=== PATIENT | female | born 1990 | race Caucasian/White ===

== ENCOUNTER → 2018-01-02 01:46 | Observation (INO) ==
[2018-01-01 23:09] LABS: Bilirubin,Urine Negative (Negative); Blood,Urine Negative (Negative); Clarity,Urine Cloudy (Clear); Color,Urine Yellow (Yellow); Glucose,Urine (UA) Normal (Normal); Ketones,Urine Negative (Negative); Leukocyte Esterase,Urine Small (Negative); Nitrite,Urine Negative (Negative); PH,Urine 6.5 pH Units (5.0-8.0); Protein,Urine Negative (Neg-Trace); Specific Gravity,Urine 1.011 (1.010-1.025); Urobilinogen,Urine Normal (Normal)
[2018-01-01 23:14] LABS: Bacteria,Urine Few per hpf (None-Few); Hyaline Casts,Urine None Seen per lpf (None-Few); RBC,Urine 0-3 per hpf (0-3); Squamous Epithelial Cell,Urine Many per lpf (None-Few)
[2018-01-01 23:30] LABS: Amphetamine Screen,Urine Negative ng/mL (Cutoff=1000); Barbiturate Screen,Urine Negative ng/mL (Cutoff=200); Benzodiazepines Screen,Urine Negative ng/mL (Cutoff=200); Cannabinoid Screen,Urine Positive ng/mL (Cutoff = 50); Cocaine Screen,Urine Negative ng/mL (Cutoff= 300); Opiate Screen,Urine Negative ng/mL (Cutoff=300); Phencyclidine Screen,Urine Negative ng/mL (Cutoff=25)
--- NOTE | 2018-01-02 00:03 | OB/GYN Progress Note ---
Date of Encounter: 01/01/18 Time of Encounter: 23:58 - Assessment and Plan (1) 33 weeks gestation of Current Visit: Yes Status: Acute Continue routine care labor precautions given Follow-up with Dr. Ferrara as scheduled Okay to discharge home (2) Abdominal pain due to injury Current Visit: Yes Status: Acute 25mg vistaril given po for slight abdominal cramping (3) Fall Current Visit: Yes Status: Acute Qualifiers: Encounter type: initial encounter Qualified Code(s): W19.XXXA - Unspecified fall, initial encounter Subjective - Subjective Principal diagnosis: abdominal pain s/p fall Interval history: Ms. Laws is a 27-year-old who presents status post falling earlier tonight around 8:30 PM. She reports that hit her head and the left side of her abdomen. She was previously cleared of all head injuries in the emergency room and transported up to labor and delivery. She reports good movement and denies contractions, leakage of fluid, vaginal bleeding. Antepartum ROS: new complaints, movement normal, no loss of fluid, no vaginal bleeding, no contractions Objective - Exam FHR: category 1 FHR comments: Baseline 120 Moderate variability Accelerations present 15x15 No decelerations FHR Category I Irritability on toco Auscultation: bilateral: normal Abdomen: Present: normal appearance, soft, gravid Uterus: Present: normal, firm Cervical dilation: 1-2(per RN) Cervix effacement: 80 station: -1 - Labs Labs: Abnormal lab results Urine Clarity Cloudy (Clear) A 01/01/18 22:54 Ur Leukocyte Esterase Small (Negative) H 01/01/18 22:54 U Marijuana (THC) Screen Positive ng/mL (Cutoff = 50) H 01/01/18 22:54
[~2018-01-02 01:46] MED LIST: hydrOXYzine pamoate 25 MG CAPSULE PO ONE
== END | disposition home or self-care (01) ==
LOC: 1NENULAB
PROVIDERS: ADMIT Obstetrics & Gynecology; ATTEND Obstetrics & Gynecology

== ENCOUNTER 2018-02-11 05:38 | Inpatient (IN) ==
--- NOTE | 2018-02-11 04:23 | OB/GYN History & Physical ---
Date of Encounter: 02/11/18 Time of Encounter: 04:16 Assessment and Plan (1) 39 weeks gestation of Current visit: Yes Status: Acute (2) Uterine contractions Current visit: Yes Status: Acute Admit to labor and delivery Expectant management at this time Nubain and epidural as desired Anticipate History of Present Illness Chief complaint: Uterine contractions HPI: Ms. Batista is a 28 year old female at 39+1 weeks gestation. Presents to triage with complaints of uterine contraction. Gestation states she started having uterine contractions last evening and have become stronger and more consistent occurring about every 2 minutes on admission, now occurring approximately every 5 minutes. Reports good movement, denies vaginal bleeding or leaking of fluid. care with Dr. Ferrara. care complicated with history of child with CHD, patient no showed for echoes had [facility], no cardiac anomalies noted on MFM ultrasound. Patient received steroids in October for short cervix, and have vaginal progesterone. Labs: A+, GBS negative, rubella IgM positive however IgG not done rubella status unknown, all other serologies negative Past Med Surg Social Fam HX - Past Medical History Medical history: no medical history Psychiatric history: anxiety - Past Surgical History Surgical History: non-contributory Additional surgical history: LEEP PROCEDURE - Social History Smoking Status: Former smoker Smokeless Tobacco Status: No Alcohol use: none Drug use: none - Family History Father Adopted: [place]: Yoseph Batista Age: 48 Family Member Ethnicity: Non- Living Status: Still Living Hx Family Cardiac Disorders: No Hx Family Respiratory Disorders: No Hx Family Cancer: No Hx Family GI Disorders: No Hx Family Genitourinary Disorders: No Hx Family Endocrine Disorder: Yes Hx Family Musculoskeletal Disorders: No Hx Family Neuromuscular Disorders: No Hx Family Reproductive Disorders: No Hx Family Psychosocial Disorders: No Obstetrical History - Pregnancies : 6 Para: 3 Term: 3 : 1 Ab's: 1 Livin Medications and Allergies Ferrous Sulfate [Iron] 1 tab PO DAILY 01/01/18 [History] Vit/Iron Fumarate/FA [ Tablet] 1 tab PO DAILY 01/01/18 [History ] 3 Allergy/AdvReac Type Severity Reaction Status Date / Time Penicillins [PCN] Allergy Hives Verified 01/01/18 22:53 propoxyphene Allergy Hives Verified 01/01/18 22:53 [From Darvocet-N] sulfamethoxazole AdvReac Nausea Verified 01/01/18 22:53 [From Bactrim] tramadol [From Ultram] AdvReac Nausea Verified 01/01/18 22:53 trimethoprim [From Bactrim] AdvReac Nausea Verified 01/01/18 22:53 Exam - Constitutional Constitutional: well developed, well nourished, no acute distress, average body habitus - Lungs Respiratory exam: stridor - Cardiovascular Cardiovascular exam: RRR - Abdomen Abdomen: Present: gravid, non tender - Extremities Extremities exam: normal capillary refill, normal inspection - Vagina Vagina: Present: normal moisture - Cervix Dilation: 4 Effacement: 80 Station: -2 Results Result Diagrams: 02/11/18 05:46 All other labs normal. - VTE Reasons for not Prescribing Prophylaxis: Treatment not Indicated - Low risk for VTE
[~2018-02-11 05:38] MED LIST changes: +*HR* Nalbuphine 10 MG/ML AMPUL IVP PRN; +Famotidine 20 MG/2 ML VIAL IVP PRN; +Lidocaine 1% 20 ML MDV INFILT PRN; +Metoclopramide 10 MG/2 ML VIAL IVP PRN; +Naloxone 0.4 MG/ML INJ IVP PRN; +Ondansetron 4 MG/2 ML VIAL IVP PRN; +Ringers Solution, Lactated 1,000 ML IVC SCH; -hydrOXYzine pamoate 25 MG CAPSULE PO ONE
[2018-02-11 06:09] LABS: Basophils % 0.2 %; Eosinophils # 0.1 K/mcL (0.0-0.6); Eosinophils % 0.4 %; Hematocrit 32.4 % (35.3-44.9); Hemoglobin 10.9 g/dL (11.5-15.4); Immature Granulocytes % 0.4 % (0-4); Lymphocytes # 3.2 K/mcL (0.6-4.6); Lymphocytes % 22.8 %; Mean Corpuscular HGB Conc 33.6 g/dL (31.6-35.5); Mean Corpuscular Hemoglobin 30.9 pg (28.0-33.3); Mean Corpuscular Volume 91.8 fL (83.0-100.0); Mean Platelet Volume 10.3 fL (9.4-12.4); Monocytes # 1.1 K/mcL (0.0-1.3); Monocytes % 7.7 %; Neutrophils # 9.5 K/mcL (1.6-8.9); Platelet Count 146 K/mcL (140-400); Red Blood Count 3.53 M/mcL (3.82-4.97); Red Cell Distribution Width 13.7 % (11.5-14.5); Segmented Neutrophils % 68.5 %
[2018-02-11 06:27] LABS: Amphetamine Screen,Urine Negative ng/mL (Cutoff=1000); Barbiturate Screen,Urine Negative ng/mL (Cutoff=200); Benzodiazepines Screen,Urine Negative ng/mL (Cutoff=200); Cannabinoid Screen,Urine Negative ng/mL (Cutoff = 50); Cocaine Screen,Urine Negative ng/mL (Cutoff= 300); Opiate Screen,Urine Negative ng/mL (Cutoff=300); Phencyclidine Screen,Urine Negative ng/mL (Cutoff=25)
--- NOTE | 2018-02-11 06:42 | Anesthesia Evaluation PreOp ---
Date of Encounter: 02/11/18 Time of Encounter: 06:24 - Past History Planned Operation: vaginal del, 39wks Cardiac History: Denies any Significant Hx Pulmonary History: Denies Any Significant HX CONCRETE MIXER OPERATOR HELPER History: Denies Any Significant HX Other Medical History: Other (anxiety, chronic back pain reports no radiculopathy states its from last epidural, but does not bother me.) Anesthesia History: No Prior Anesthetic Complications, Past Anesthesia ( previous wet tap with last epidural.) : Yes Alcohol Use: none Drug use: none Medications and Allergies Ferrous Sulfate [Iron] 1 tab PO DAILY 01/01/18 [History] Vit/Iron Fumarate/FA [ Tablet] 1 tab PO DAILY 01/01/18 [History ] 3 Allergy/AdvReac Type Severity Reaction Status Date / Time Penicillins [PCN] Allergy Hives Verified 01/01/18 22:53 propoxyphene Allergy Hives Verified 01/01/18 22:53 [From Darvocet-N] sulfamethoxazole AdvReac Nausea Verified 01/01/18 22:53 [From Bactrim] tramadol [From Ultram] AdvReac Nausea Verified 01/01/18 22:53 trimethoprim [From Bactrim] AdvReac Nausea Verified 01/01/18 22:53 Anesthesia Results - Labs 02/11/18 05:46 Anesthesia Exam - HEENT Pupil (Motor): Pupils equal Mallampati: II Teeth: Poor dentition (states all stable ?, very poor condition!) Oral Opening: Greater than 3 - CONCRETE MIXER OPERATOR HELPER LOC: Oriented CONCRETE MIXER OPERATOR HELPER Motor: Normal RUE, Normal LUE, Normal RLE, Normal LLE, Normal Face CONCRETE MIXER OPERATOR HELPER Sensory: Normal: RUE, LUE, RLE, LLE, Face - Cardiac Rhythm: Regular Murmur: None - Pulmonary Breath Sounds: bilateral Clear Respiratory Effort: Symmetrical Anesthesia Assess/Plan ASA Score: 2 Modified [place] Scale for Level of Consciousness: Cooperative, oriented, and tranquil Anesthetic Plan: General, Regional Monitoring Plan: Standard Monitors Recovery Plan: PACU
[2018-02-11] MEDS ORDERED: Lidocaine -MPF 2% 5 ML VIAL ONE (07:09)
[2018-02-11] MEDS ORDERED: Epidural Premix (fent/bupiv) 110 ML EP ONE (07:10)
[2018-02-11] MEDS ORDERED: Epidural Premix (fent/bupiv) 110 ML EP SCH (07:15)
--- NOTE | 2018-02-11 08:22 | Anesthesia Procedures ---
Date of Encounter: 02/11/18 Time of Encounter: 08:21 Procedures: Anesthesia - Epidural/Spinal Patient ID/Chart reviewed: Yes Patient examined: Yes OB Eval: Gestational age: 39 OB Eval: : 6 OB Eval: Hx Para: 3 OB Eval: Dilated at (cm): 5 OB Eval: Contractions: Non-stressed pattern Consent Obtained: Yes Supplemental Oxygen: None/Room Air Site Prep: Aseptic Technique, Sterile prep and drape, Povidone-Iodine 1% Patient position: upright Local Anesthetic: Lidocaine 1% Amount of Local Anesthetic used: 3 Touhy Needle Gauge: 18 Touhy Needle Depth (cm): 8 Catheter Depth at Skin (cm): 18 Test Dose (1.5% Lido + Epi): Volume given (mls): 5 Test Dose Result: Negative Loading Dose: Other: 10mls pharm bag premix solution Loading Dose Administered: Thru Catheter Infusion Med: 0.125% Bupivacaine w/ 2 mcg/ml Fentanyl Infusion Rate (mls/hr): 15 (4mlq15 min pcea) Catheter Secured in Place: Tegaderm, Tape Interspace Used: L4-L5 Loss of Resistance (IVET): Yes Blood: No CSF: No Paresthesia: No Procedure: pt tolerated procedure well. no complications. vss. fhr stable.
--- NOTE | 2018-02-11 09:05 | OB Labor Progress Note ---
Date of Encounter: 02/11/18 Time of Encounter: 09:03 Labor Progress Note - Subjective Subjective: patient is doing well, no longer feeling her contractions with epidural - Cervix Cervix: 5/90/-2 AROM clear fluid - Heart Tones Heart Tones: FHT's 140's reactive - Ephraim Ephraim: contractions are irregular 3-7min - Plan Plan: if patient does not make any cervical change in the next couple hours will discuss augmentation
[2018-02-11] MEDS ORDERED: Oxytocin 20 units/ LR 1000 mL 20 UNIT/1,000 ML BAG IVC ONE (09:58)
--- NOTE | 2018-02-11 12:21 | OB/GYN Procedure Note ---
Delivery - Delivery Date: 02/11/18 Provider: Yunier Rodriguez Intrapartum events: none Delivery augmentation: rupture of membranes Delivery monitor: external FHT, external uterine Anesthesia: epidural Quantitated Blood Loss: 50 - Infant (s) A Infant Delivery Date: 02/11/18 Delivery Time: 12:06 Presentation: vertex Position: RADHA Route of delivery: Gender: Female Viability: Viable Pounds: 6 Ounces: 15 Weight Gram: 3.135 kg at 1 minute: 8 at 5 mins: 9 Shoulder Dystocia: not encountered Placenta: spontaneous Cord: 3 umbilical vessels - Repair Episiotomy: none Laceration Description: None - Complications Delivery complications: none Delivery comments: The patient is a 28-year-old 6 para 30-3 at 39 and one sevenths weeks who had presented to labor and delivery in active labor. Patient was 3 cm on admission she was observed had changed to 4 cm and 5 cm contractions became uncomfortable and patient was admitted and epidural was placed when the patient was 5 cm she was artificially ruptured for clear fluid noted she did not require any additional augmentation patient progressed to completion first approximately 3 times delivering a viable female infant in left occiput anterior presentation at 1206. There was no nuchal cord, no meconium, and the infant was bulb suctioned on the abdomen. Apgars were 8 at 1 minute, 9 at 5, infant weight was 6 lbs. 15 oz. Placenta was then delivered spontaneously with a three-vessel cord, manager market development at the terry Rodriguez epidural, estimated blood loss 50 mL. Perineum cervix and vagina was visualized intact. Patient tolerated the delivery well she will be observed 2 hours before being taken to floor. - Disposition Mom disposition: stable in LDR disposition: stable in LDR
[2018-02-11] MEDS ORDERED: Acetaminophen 325 MG TABLET PO PRN (15:19)
[2018-02-11] MEDS ORDERED: Measles/Mumps/Rubella Vacc 0.5 ML VIAL SQ PRN (15:19)
[2018-02-11] MEDS ORDERED: Oxytocin 20 units/ LR 1000 mL 20 UNIT/1,000 ML BAG IVC SCH (15:19)
[2018-02-11] MEDS: Ibuprofen 600 MG TABLET PO PRN (15:46)
[2018-02-12 06:45] LABS: Basophils % 0.2 %; Eosinophils # 0.1 K/mcL (0.0-0.6); Eosinophils % 0.5 %; Hematocrit 30.8 % (35.3-44.9); Hemoglobin 10.3 g/dL (11.5-15.4); Immature Granulocytes % 0.4 % (0-4); Lymphocytes # 2.9 K/mcL (0.6-4.6); Mean Corpuscular HGB Conc 33.4 g/dL (31.6-35.5); Mean Corpuscular Hemoglobin 31.4 pg (28.0-33.3); Mean Corpuscular Volume 93.9 fL (83.0-100.0); Mean Platelet Volume 10.8 fL (9.4-12.4); Monocytes # 0.9 K/mcL (0.0-1.3); Monocytes % 7.7 %; Neutrophils # 7.6 K/mcL (1.6-8.9); Platelet Count 116 K/mcL (140-400); Red Blood Count 3.28 M/mcL (3.82-4.97); Red Cell Distribution Width 13.4 % (11.5-14.5); Segmented Neutrophils % 66.2 %
[2018-02-12 08:14] VITALS: BP 105/66
[2018-02-12] MEDS: Ibuprofen 600 MG TABLET PO PRN (08:52)
[2018-02-12] MEDS ORDERED: Prenatal Vit/FA 1 EACH TABLET PO SCH (09:00)
[2018-02-12] MEDS ORDERED: NON-FORMULARY MEDICATION 1 EACH EACH (Prenatal Vit/Iron Fumarate/Fa [Prenatal Tablet] 1 TA PO SCH (09:00)
[2018-02-12] MEDS ORDERED: Lanolin 7 G OINT...G. TP PRN (10:41)
--- NOTE | 2018-02-12 10:49 | Discharge Summary ---
Date of Encounter: 02/12/18 Time of Encounter: 10:46 - Discharge Diagnosis (1) Vaginal delivery Priority: Primary Status: Acute Comments: Pain well controlled with po pain meds Tolerating regular diet Ambulating independently Voiding independently Passing flatus, but no BM yet Lochia light Discharge home today (2) Breast feeding status of mother Priority: Secondary Status: Acute Comments: Community resources provided (3) anemia Priority: Secondary Status: Acute Comments: Continue iron daily - Discharge Medications Prescriptions: RX: Ibuprofen [Motrin] 600 mg PO Q6HR PRN #30 tablet PRN Reason: Cramping RX: Docusate [Colace] 100 mg PO BID #30 capsule RX: Ferrous Sulfate 325 mg PO DAILY #30 tablet Home Medications: RX: Vit/Iron Fumarate/FA [ Tablet] 1 tab PO DAILY 01/01/18 [ History] RX: Acetaminophen [Tylenol] 650 mg PO Q6HR PRN tablet 02/12/18 [Rx] RX: Docusate [Colace] 100 mg PO BID #30 capsule 02/12/18 [Rx] RX: Ferrous Sulfate 325 mg PO DAILY #30 tablet 02/12/18 [Rx] RX: Ibuprofen [Motrin] 600 mg PO Q6HR PRN #30 tablet 02/12/18 [Rx] RX: Lanolin [Lansinoh] 1 appl TP TID PRN oint...g. 02/12/18 [Rx] Allergies/Adverse Reactions: 3 Allergy/AdvReac Type Severity Reaction Status Date / Time Penicillins [PCN] Allergy Hives Verified 01/01/18 22:53 propoxyphene Allergy Hives Verified 01/01/18 22:53 [From Darvocet-N] sulfamethoxazole AdvReac Nausea Verified 01/01/18 22:53 [From Bactrim] tramadol [From Ultram] AdvReac Nausea Verified 01/01/18 22:53 trimethoprim [From Bactrim] AdvReac Nausea Verified 01/01/18 22:53 Data Procedures and tests throughout hospitalization: Laboratory Tests 02/11/18 02/11/18 02/12/18 05:46 05:46 06:25 WBC 13.9 H 11.5 H RBC 3.53 L 3.28 L Hgb 10.9 L 10.3 L Hct 32.4 L 30.8 L MCV 91.8 93.9 MCH 30.9 31.4 MCHC 33.6 33.4 RDW 13.7 13.4 Plt Count 146 116 L MPV 10.3 10.8 Immature Gran % 0.4 0.4 Seg Neutrophils % 68.5 66.2 Lymphocytes % 22.8 25.0 Monocytes % 7.7 7.7 Eosinophils % 0.4 0.5 Basophils % 0.2 0.2 Neutrophils # 9.5 H 7.6 Lymphocytes # 3.2 2.9 Monocytes # 1.1 0.9 Eosinophils # 0.1 0.1 Basophils # 0.0 0.0 Urine Opiates Screen Negative Ur Barbiturates Screen Negative Ur Phencyclidine Scrn Negative Ur Amphetamines Screen Negative U Benzodiazepines Scrn Negative Urine Cocaine Screen Negative U Marijuana (THC) Screen Negative Ur Drug Screen Interp See Below Labs on day of discharge: Labs from last 24 hours 02/12/18 06:25 WBC 11.5 H RBC 3.28 L Hgb 10.3 L Hct 30.8 L MCV 93.9 MCH 31.4 MCHC 33.4 RDW 13.4 Plt Count 116 L MPV 10.8 Immature Gran % 0.4 Seg Neutrophils % 66.2 Lymphocytes % 25.0 Monocytes % 7.7 Eosinophils % 0.5 Basophils % 0.2 Neutrophils # 7.6 Lymphocytes # 2.9 Monocytes # 0.9 Eosinophils # 0.1 Basophils # 0.0 Date of admission: 02/11/18 05:38 Consults: 02/11/18 15:19 Consult to Circuits Engineer [CONS] Routine Comment: Vaginal delivery, consult needed Discharging clinician: Emelina Arcos Anticipated date of discharge: 02/12/18 - Patient Status Disposition: Home, Self-Care Condition: Good Functional capacity at discharge: independent ambulation Overall status at discharge: patient is progressing back to baseline - Discharge Instructions Follow Up With: Miguel Ferrara MD [Partnered Physician] - - Diet and Activity Activity: increase activity as tolerated Diet: regular diet Hospital Course Reason for admission: IUP at term Delivery: Episiotomy: none Laceration: none Other procedures: none complications: none Discharge diagnosis: IUP at term delivered [place] baby: female Time Attestation: Total time spent providing and/or coordinating discharge services: Time Spent: Less than 30 minutes Exam - Constitutional Vitals: Temp Pulse Resp BP Pulse Ox 98 F 63 16 105/66 99 02/12/18 08:12 02/12/18 08:12 02/12/18 09:00 02/12/18 08:12 02/12/18 08:12 General appearance IM: A&O X 3 - Respiratory Respiratory exam: Present: CTAB - Cardiovascular Cardiovascular exam IM: Present: RRR, +S1, +S2 - GI/Abdominal GI/Abdominal exam IM: normal bowel sounds, no peritoneal signs - Rectal Rectal exam: deferred - Uterine Tone: Firm Uterus Position: At Umbilicus, Midline - Extremities Exam Extremities exam IM: Present: normal capillary refill, normal inspection, radial pulses palpable and symmetrical - Neurological Exam Neurological exam: alert, CN II-XII intact, normal gait, oriented X3, reflexes normal, no focal deficits, strengths equal and symetr throughout - Psychiatric Additional comments: Patient denies history of depression. Signs and symptoms of depression discussed and patient verbalizes understanding of when to seek help. - Other Additional findings: Breasts: Soft, nontender. Nipples intact without erythema.
== END 2018-02-12 13:45 | disposition home or self-care (01) | DRG 560 ==
LOC: 1NENULAB → 1NENUOBS 15:07
PROVIDERS: ADMIT Advanced Practice Midwife; ATTEND Advanced Practice Midwife

== ENCOUNTER 2019-10-18 18:02 | Observation (INO) ==
[2019-10-18] MEDS ORDERED: *HR* Promethazine 25 MG/ML VIAL IVP ONE (18:57)
[2019-10-18] MEDS ORDERED: Ringers Solution, Lactated 1,000 ML IVC ONE (18:57)
[2019-10-18] MEDS ORDERED: Promethazine 25 MG in 0.9 % Sodium Chloride 50 ML IVPB ONE (19:15)
[2019-10-18 19:27] LABS: Bilirubin,Urine Small (Negative); Blood,Urine Negative (Negative); Clarity,Urine Cloudy (Clear); Color,Urine Yellow (Yellow); Glucose,Urine (UA) Normal (Normal); Ketones,Urine Negative (Negative); Leukocyte Esterase,Urine Moderate (Negative); Nitrite,Urine Negative (Negative); PH,Urine 6.5 pH Units (5.0-8.0); Protein,Urine Trace mg/dL (Neg-Trace); Specific Gravity,Urine > 1.030 (1.010-1.025); Urobilinogen,Urine Normal (Normal)
[2019-10-18 19:29] LABS: Hyaline Casts,Urine None Seen per lpf (None-Few); RBC,Urine 0-3 per hpf (0-3); Squamous Epithelial Cell,Urine Many per lpf (None-Few)
[2019-10-18 19:42] LABS: Bacteria,Urine Many per hpf (None-Few)
[2019-10-18] MEDS ORDERED: 0.9 % Sodium Chloride 1,000 ML ONE (20:48)
[2019-10-18] MEDS ORDERED: Acetaminophen IV 1,000 MG/100 ML INFUS..BTL IVPB ONE (22:22)
[2019-10-18] MEDS ORDERED: Magnesium Oxide 400 MG TABLET PO STA (22:26)
== END 2019-10-18 23:48 | disposition home or self-care (01) ==
LOC: 1NENULAB
PROVIDERS: ADMIT Obstetrics & Gynecology; ATTEND Obstetrics & Gynecology

== ENCOUNTER 2019-11-23 06:54 | Inpatient (IN) ==
[2019-11-23] MEDS ORDERED: Clindamycin 900 MG/50 ML 900 MG/50 ML IV.SOLN IVPB ONE (07:12)
[2019-11-23] MEDS ORDERED: Metoclopramide 10 MG/2 ML VIAL IVP ONE (07:12)
[2019-11-23] MEDS ORDERED: Gentamicin 100 MG in 0.9 % Sodium Chloride 100 ML IVPB ONE (07:12)
[2019-11-23] MEDS ORDERED: Famotidine 20 MG/2 ML VIAL IVP ONE (07:12)
[2019-11-23] MEDS ORDERED: Ringers Solution, Lactated 1,000 ML IVC SCH (07:15)
[2019-11-23 08:06] LABS: Basophils % 0.2 %; Eosinophils # 0.1 K/mcL (0.0-0.6); Eosinophils % 0.7 %; Hematocrit 34.1 % (35.3-44.9); Hemoglobin 10.9 g/dL (11.5-15.4); Immature Granulocytes % 0.5 % (0-4); Lymphocytes # 2.2 K/mcL (0.6-4.6); Lymphocytes % 24.3 %; Mean Corpuscular Hemoglobin 29.7 pg (28.0-33.3); Mean Corpuscular Volume 92.9 fL (83.0-100.0); Mean Platelet Volume 10.5 fL (9.4-12.4); Monocytes # 0.7 K/mcL (0.0-1.3); Monocytes % 7.3 %; Neutrophils # 6.1 K/mcL (1.6-8.9); Platelet Count 148 K/mcL (140-400); Red Blood Count 3.67 M/mcL (3.82-4.97); Red Cell Distribution Width 16.9 % (11.5-14.5); White Blood Count 9.2 K/mcL (4.3-11.1)
[2019-11-23] MEDS ORDERED: Ondansetron 4 MG/2 ML VIAL IVP ONE (08:39)
[2019-11-23] MEDS ORDERED: Morphine Sulfate 2 MG/ML SYRINGE IVP PRN (08:39)
[2019-11-23] MEDS ORDERED: *HR* OxyCODONE Immed Rel 5 MG TABLET PO PRN (08:39)
[2019-11-23] MEDS ORDERED: Acetaminophen IV 1,000 MG/100 ML INFUS..BTL IVPB ONE (08:39)
[2019-11-23] MEDS ORDERED: Morphine Sulfate Immed Rel 15 MG TABLET PO PRN (10:48)
[2019-11-23] MEDS ORDERED: Ondansetron 4 MG/2 ML VIAL IVP PRN (13:06)
[2019-11-23] MEDS ORDERED: Rho Immune Globulin 1,500 UNIT SYRINGE IM ONE (13:06)
[2019-11-23] MEDS ORDERED: Sennosides 8.6 MG TABLET PO PRN (13:06)
[2019-11-23] MEDS ORDERED: Metoclopramide 10 MG/2 ML VIAL IVP PRN (13:06)
[2019-11-23] MEDS: Ibuprofen 600 MG TABLET PO PRN ×2 (15:23→21:06)
[2019-11-23] MEDS: Oxytocin 20 units/ LR 1000 mL 20 UNIT/1,000 ML BAG IVC SCH ×2 (15:25→23:44)
[2019-11-23] MEDS: Simethicone 80 MG TAB.CHEW PO PRN (21:06)
[2019-11-23] MEDS: *HR* OxyCODONE/APAP 5/325 TABLET PO PRN (22:10)
[2019-11-24] MEDS: *HR* OxyCODONE/APAP 5/325 TABLET PO PRN ×5 (03:15→20:47)
[2019-11-24 07:46] LABS: Basophils % 0.2 %; Eosinophils % 0.3 %; Hemoglobin 10.5 g/dL (11.5-15.4); Immature Granulocytes % 0.2 % (0-4); Lymphocytes # 1.5 K/mcL (0.6-4.6); Lymphocytes % 16.5 %; Mean Corpuscular HGB Conc 31.8 g/dL (31.6-35.5); Mean Corpuscular Hemoglobin 30.2 pg (28.0-33.3); Mean Corpuscular Volume 94.8 fL (83.0-100.0); Mean Platelet Volume 10.7 fL (9.4-12.4); Monocytes # 0.6 K/mcL (0.0-1.3); Monocytes % 6.2 %; Neutrophils # 7.1 K/mcL (1.6-8.9); Platelet Count 138 K/mcL (140-400); Red Blood Count 3.48 M/mcL (3.82-4.97); Red Cell Distribution Width 17.1 % (11.5-14.5); Segmented Neutrophils % 76.6 %; White Blood Count 9.3 K/mcL (4.3-11.1)
[2019-11-24] MEDS: Prenatal Vit/FA 1 EACH TABLET PO SCH (08:06)
[2019-11-24] MEDS: Ibuprofen 600 MG TABLET PO PRN ×2 (14:10→22:38)
[2019-11-25] MEDS: *HR* OxyCODONE/APAP 5/325 TABLET PO PRN ×3 (01:31→10:12)
[2019-11-25] MEDS ORDERED: Lanolin 7 G OINT...G. TP PRN (06:07)
[2019-11-25] MEDS: Ibuprofen 600 MG TABLET PO PRN (06:07)
[2019-11-25 07:49] VITALS: BP 126/86
[2019-11-25] MEDS: Simethicone 80 MG TAB.CHEW PO PRN (09:00)
[2019-11-25] MEDS: Prenatal Vit/FA 1 EACH TABLET PO SCH (09:00)
== END 2019-11-25 13:27 | disposition home or self-care (01) | DRG 540 ==
LOC: 1NENULAB 06:54 → 1NENUOBS 15:08
PROVIDERS: ADMIT Obstetrics & Gynecology; ATTEND Obstetrics & Gynecology

== ENCOUNTER 2021-09-15 01:05 | Observation (INO) ==
[2021-09-15] MEDS ORDERED: 0.9 % Sodium Chloride 250 ML ONE (01:19)
[2021-09-15] MEDS ORDERED: 0.9 % Sodium Chloride 1,000 ML ONE (01:19)
[2021-09-15] MEDS ORDERED: 0.9 % Sodium Chloride 2,000 ML IV ONE (01:22)
[2021-09-15] MEDS ORDERED: Tranexamic Acid 1,000 MG/100ML 1,000 MG/100 ML PIGGYBACK IVPB ONE (01:27)
[2021-09-15] MEDS ORDERED: Ondansetron 4 MG/2 ML VIAL ONE (01:36)
[2021-09-15] MEDS ORDERED: *HR* Propofol 200 MG/20 ML VIAL IVP ONE (01:36)
[2021-09-15] MEDS ORDERED: Lidocaine -MPF 2% 5 ML VIAL ONE (01:36)
[2021-09-15] MEDS ORDERED: *HR* Succinylcholine 200 MG/10 ML VIAL IVP ONE (01:36)
[2021-09-15] MEDS ORDERED: *HR* FentaNYL (PF) 100 MCG/2 ML VIAL ONE (01:38)
[2021-09-15 01:44] LABS: Basophils # 0.1 K/mcL (0.0-0.2); Basophils % 0.4 %; Eosinophils # 0.1 K/mcL (0.0-0.6); Eosinophils % 0.7 %; Hematocrit 31.7 % (35.3-44.9); Hemoglobin 10.7 g/dL (11.5-15.4); Immature Granulocytes % 0.3 % (0-4); Lymphocytes # 3.8 K/mcL (0.6-4.6); Lymphocytes % 27.9 %; Mean Corpuscular HGB Conc 33.8 g/dL (31.6-35.5); Mean Corpuscular Hemoglobin 31.6 pg (28.0-33.3); Mean Corpuscular Volume 93.5 fL (83.0-100.0); Mean Platelet Volume 10.9 fL (9.4-12.4); Monocytes # 1.1 K/mcL (0.0-1.3); Monocytes % 8.2 %; Neutrophils # 8.6 K/mcL (1.6-8.9); Platelet Count 310 K/mcL (140-400); Red Blood Count 3.39 M/mcL (3.82-4.97); Red Cell Distribution Width 12.6 % (11.5-14.5); Segmented Neutrophils % 62.5 %; White Blood Count 13.7 K/mcL (4.3-11.1)
[2021-09-15 01:52] LABS: INR 1.1; Prothrombin Time 11.9 Seconds (9.4-12.1)
[2021-09-15 01:55] LABS: Activated Partial Thrombo Time 23.9 Seconds (26.0-36.0)
[2021-09-15] MEDS ORDERED: Albuterol 2.5 MG/3 ML NEBULIZER IH PRN (01:56)
[2021-09-15] MEDS ORDERED: *HR* Labetalol 20 MG/4 ML SYRINGE IVP PRN (01:56)
[2021-09-15] MEDS ORDERED: Morphine Sulfate 2 MG/ML SYRINGE IVP PRN (01:56)
[2021-09-15] MEDS ORDERED: Promethazine 6.25 MG in Water for inj. (sterile) 20 ML IVPB PRN (01:56)
[2021-09-15] MEDS ORDERED: Ondansetron 4 MG/2 ML VIAL IVP PRN (01:56)
[2021-09-15] MEDS ORDERED: Ketorolac 30 MG/ML VIAL IVP PRN (01:56)
[2021-09-15] MEDS ORDERED: *HR* OxyCODONE Immed Rel 5 MG TABLET PO PRN (01:56)
[2021-09-15 02:04] LABS: Alanine Aminotransferase 11 Units/L (7-52); Albumin 3.7 g/dL (3.5-5.7); Albumin/Globulin Ratio 1.5 (1.1-2.2); Alkaline Phosphatase 50 Units/L (34-104); Aspartate Amino Transferase 11 Units/L (13-39); BUN/Creatinine Ratio 12 (6-26); Bilirubin,Direct 0.1 mg/dL (0.0-0.2); Bilirubin,Indirect 0.3 mg/dL (0.0-1.0); Bilirubin,Total 0.4 mg/dL (0.3-1.0); Blood Urea Nitrogen 11 mg/dL (6-20); Calcium 8.7 mg/dL (8.6-10.3); Carbon Dioxide 20 mEq/L (23-29); Chloride 108 mEq/L (98-107); Globulin 2.4 g/dL (2.4-3.5); Glucose 100 mg/dL (70-105); Osmolality,Calculated 283 (280-300); Sodium 137 mEq/L (136-145); Total Protein 6.1 g/dL (6.4-8.9); eGFR For African Americans > 60 (> 60); eGFR For Non-African Americans > 60 (> 60)
[2021-09-15] MEDS ORDERED: Doxycycline 100 MG in 0.9 % Sodium Chloride Mini Bag 100 ML IVPB STA (02:06)
[2021-09-15] MEDS ORDERED: EPHEDrine 50 MG/ML VIAL ONE (02:27)
[2021-09-15] MEDS ORDERED: *HR* Belladonna Alkaloids/Opium 30 MG RECTAL SUPPOSITORY RC ONE ×2 (02:31→02:40)
[2021-09-15] MEDS ORDERED: Ketorolac 30 MG/ML VIAL ONE (02:55)
[2021-09-15] MEDS ORDERED: Ondansetron 4 MG/2 ML VIAL IVP ONE (06:08)
[2021-09-15] MEDS ORDERED: Ringers Solution, Lactated 1,000 ML IVC ONE (06:21)
[2021-09-15 06:56] VITALS: TEMP 97.9; O2SAT 99
[2021-09-15] MEDS ORDERED: Ibuprofen 600 MG TABLET PO PRN (08:00)
[2021-09-15] MEDS ORDERED: *HR* HYDROcodone/Acet 5/325 mg TABLET PO PRN (08:01)
[2021-09-15 08:06] VITALS: BP 93/57; PULSE 75
[2021-09-15 09:14] LABS: Hematocrit 25.2 % (35.3-44.9); Mean Corpuscular HGB Conc 32.9 g/dL (31.6-35.5); Mean Corpuscular Hemoglobin 31.1 pg (28.0-33.3); Mean Corpuscular Volume 94.4 fL (83.0-100.0); Mean Platelet Volume 10.6 fL (9.4-12.4); Platelet Count 142 K/mcL (140-400); Red Blood Count 2.67 M/mcL (3.82-4.97); Red Cell Distribution Width 12.8 % (11.5-14.5); White Blood Count 10.1 K/mcL (4.3-11.1)
[2021-09-15 09:17] LABS: Hemoglobin 8.3 g/dL (11.5-15.4)
== END 2021-09-15 12:31 | disposition home or self-care (01) ==
LOC: EMEROOARM 01:05 → 1NENUOBS 01:05
PROVIDERS: ADMIT Obstetrics & Gynecology; ATTEND Obstetrics & Gynecology